=== PATIENT | female | born 1975 | race American Indian/Alaskan Native ===

== ENCOUNTER 2018-03-22 11:43 | Outpatient (CLI) | payer OTHER | END 2018-03-22 12:44 | disposition home or self-care (01) | LOC: NST 11:43 | DX: Z34.03 Encounter for supervision of normal first pregnancy, third trimester (principal) ==

== ENCOUNTER 2018-05-02 10:20 | Outpatient (CLI) | payer OTHER | END 2018-05-02 11:38 | disposition home or self-care (01) | LOC: NST 10:20 | DX: Z34.83 Encounter for supervision of other normal pregnancy, third trimester (principal) ==

== ENCOUNTER 2018-05-24 09:18 | Inpatient (IN) | payer OTHER ==
[~2018-05-24] VITALS: Ht 157.5 cm; Wt 3.6 kg
[2018-06-01] MEDS ORDERED: PRENATAL PLUS1 EAC1 PO (08:39)
[2018-06-01] MEDS ORDERED: IRON 100 PLUS1 EACH PO (08:39)
== END 2018-06-04 16:15 | DRG 785 ==
LOC: OB/GYN 06-01 08:25 → O/R 06-01 08:25 → OB/GYN 06-01 15:02 → RECOVERY 06-12 12:15
PROVIDERS: ADMIT Obstetrics & Gynecology Maternal & Fetal Medicine
PROC: 0UB70ZZ Excision of Bilateral Fallopian Tubes, Open Approach (ICD-10-PCS; 2018-06-01)
PROC: 4A1HXCZ Monitoring of Products of Conception, Cardiac Rate, External Approach (ICD-10-PCS; 2018-06-01)
PROC: 10D00Z1 Extraction of Products of Conception, Low, Open Approach (ICD-10-PCS; principal; 2018-06-01 11:45)
DX: O34.211 Maternal care for low transverse scar from previous cesarean delivery (principal); O32.1XX0 Maternal care for breech presentation, not applicable or unspecified; O75.82 Onset (spontaneous) of labor after 37 completed weeks of gestation but before 39 completed weeks gestation, with delivery by (planned) cesarean section; Z3A.38 38 weeks gestation of pregnancy; Z37.0 Single live birth; Z30.2 Encounter for sterilization

== ENCOUNTER 2018-05-24 11:51 | Outpatient (CLI) | payer OTHER | END 2018-05-24 12:00 | disposition home or self-care (01) | LOC: LAB 11:51 | DX: Z34.83 Encounter for supervision of other normal pregnancy, third trimester (principal); Z11.4 Encounter for screening for human immunodeficiency virus [HIV] ==